=== PATIENT | female | born 1955 | race Asian ===

== ENCOUNTER 2018-06-11 07:33 | Day surgery (SDC) | payer OTHER ==
[~2018-06-11 07:33] MED LIST: CYCLOPENTOLATE 1% OPHTH DROPS 2 ML ONE; KETOROLAC 0.45% OPHTH DROPS ONE; PHENYLEPHRINE 2.5% OPHTH 2 ML DROPS ONE; PROPARACAINE 0.5% OPHTH DROPS 15 ML ONE
[2018-06-11] MEDS ORDERED: BSS/LIDOCAINE/EPINEPHRINE 1 ML SYRINGE ONE (07:53)
[2018-06-11] MEDS ORDERED: TIMOLOL 0.5% OPHTH DROPS ONE (07:53)
[2018-06-11] MEDS ORDERED: VANCOMYCIN OPHTHALMI 8MG/0.8ML 8 MG/0.8 ML SYRINGE IO ONE (07:53)
[2018-06-11] MEDS ORDERED: BRIMONIDINE 0.2% OPHTH DROPS 5 ML ONE (07:53)
[2018-06-11] MEDS ORDERED: TRIAMCIN/MOXIFLOX OPHTHALMIC 0.6 ML VIAL IO ONE (07:53)
[2018-06-11] MEDS ORDERED: EPINEPHrine 1 MG/ML AMP ONE (07:53)
[2018-06-11] MEDS ORDERED: PROPARACAINE 0.5% OPHTH DROPS 15 ML LEFTEYE ONE (08:25)
[2018-06-11] MEDS ORDERED: CYCLOPENTOLATE 1% OPHTH DROPS 2 ML LEFTEYE ONE (08:25)
[2018-06-11] MEDS ORDERED: PHENYLEPHRINE 2.5% OPHTH 2 ML DROPS LEFTEYE ONE (08:25)
[2018-06-11] MEDS ORDERED: KETOROLAC 0.45% OPHTH DROPS LEFTEYE ONE (08:25)
--- NOTE | 2018-06-11 08:25 | ANESTHESIA ---
Pre-Anesthesia VS, & Labs - Diagnosis L senile combined cataract - Procedure L extraction cataract with IOL Vital Signs: Temp Pulse Resp BP Pulse Ox 36.9 C 70 16 146/97 H 99 06/11/18 08:13 06/11/18 08:13 06/11/18 08:13 06/11/18 08:13 06/11/18 08:13 Height 5 ft Weight (kg) 67 kg - NPO >8 hours Last Fluid Intake: sips with Losartan - Is Patient ?: No Home Medications and Allergies Home Medications: Ambulatory Orders Medication Instructions Recorded Confirmed Aspirin [Adult Aspirin Regimen] 81 mg PO 06/10/18 Atorvastatin [Lipitor] 06/10/18 Loratadine 10 mg PO 06/10/18 Losartan Potassium 25 mg PO 06/10/18 metFORMIN [Glucophage] 500 mg PO ONCE 06/10/18 06/10/18 Aspirin [Adult Aspirin Regimen] 81 mg PO 06/10/18 Atorvastatin [Lipitor] 06/10/18 Loratadine 10 mg PO 06/10/18 Losartan Potassium 25 mg PO 06/10/18 metFORMIN [Glucophage] 500 mg PO ONCE 06/10/18 Allergies/Adverse Reactions: Allergies Allergy/AdvReac Type Severity Reaction Status Date / Time Penicillins Allergy Rash Verified 06/10/18 14:53 Sulfa (Sulfonamide Allergy Rash Verified 06/10/18 14:52 Antibiotics) Anes History & Medical History - Anesthetic History Anesthesia Complications: reports: No previous complications Family history of Anesthesia Complications: Denies Family history of Malignant Hyperthermia: Denies - Medical History Cardiovascular: reports: Hypertension, High cholesterol Endocrine/Autoimmune: reports: Type 2 diabetes - Surgical History General: Colonoscopy Gynecologic: Hysterectomy Exam General: Alert, Oriented x3, Cooperative, No acute distress Dental: WNL Mouth Openin Fingerbreadth Neck Mobility: Normal Mallampati classification: II Thyromental Distance: 4-6 cm Respiratory: Lungs clear, Normal breath sounds, No respiratory distress, No accessory muscle use Cardiovascular: Regular rate, Normal S1, Normal S2, No murmurs Plan Anesthesia Type: MAC Consent for Procedure(s) Verified and Reviewed: Yes Code Status: Attempt Resuscitation ASA classification: 2-Mild systemic disease Is this case an emergency?: No
[2018-06-11] MEDS ORDERED: LACTATED RINGERS 500 ML IV ONE (08:30)
[2018-06-11] MEDS ORDERED: MIDAZOLAM 2 MG/2 ML VIAL IVP ONE (09:00)
[2018-06-11] MEDS ORDERED: fentaNYL 100 MCG/2 ML VIAL IVP ONE (09:00)
[2018-06-11] MEDS ORDERED: EPINEPHrine 1 MG/ML AMP IVP ONE (09:08)
[2018-06-11] MEDS ORDERED: CHONDR SULF/HYALURONATE SYRINGE IO ONE (09:08)
[2018-06-11] MEDS ORDERED: BRIMONIDINE 0.2% OPHTH DROPS 5 ML OPTH ONE (09:08)
[2018-06-11] MEDS ORDERED: BSS/LIDOCAINE/EPINEPHRINE 1 ML SYRINGE IO ONE (09:09)
[2018-06-11] MEDS ORDERED: TIMOLOL 0.5% OPHTH DROPS OPTH ONE (09:09)
[2018-06-11] MEDS ORDERED: TRIAMCIN/MOXIFLOX/VANCO 1 ML VIAL IO ONE (09:09)
[2018-06-11 09:32] VITALS: BP 120/67
--- NOTE | 2018-06-11 10:40 | OPERATIVE REPORT ---
DATE OF SERVICE: 06/11/2018 Physician: Shiraz Stern MD PREOPERATIVE DIAGNOSIS: Visually significant cataract, left eye. This was her first cataract surger y. POSTOPERATIVE DIAGNOSIS: Visually significant cataract, left eye. This was her first cataract surge ry. NAME OF PROCEDURE: Phacoemulsification with posterior chamber intraocular lens implant, left eye. SURGEON: Shiraz Stern MD ANESTHESIA: Monitored anesthesia care. COMPLICATIONS: None. OPERATIVE INDICATIONS: This is a 63-year-old woman with progressive vision loss in the left eye due to a 1-2+ nuclear sclerotic and 3-4+ cortical cataract. Best corrected visual acuity was count finge rs at 1 foot, with glare to hand motions vision. Some of that may be due to a central serous chorior etinopathy. She was consented at length concerning risks and benefits of cataract surgeries which sh e expressed a desire to proceed with surgery. OPERATIVE PROCEDURE: The patient was taken to OR #3 and placed under monitored anesthesia care. A s urgical timeout was conducted confirming correct patient, correct procedure, and correct surgical sit e. She was given topical anesthesia, and then prepped and draped in the usual sterile fashion. The eye was entered at the 6 and 3 o'clock positions. Intracameral Shugarcaine was injected into the ant erior chamber, followed by Viscoat. A continuous-tear curvilinear capsulorrhexis was performed. The nucleus was hydrodissected and phacoemulsified. Cortex was evacuated using automated infusion and a spiration. Provisc was injected in the capsular bag, and a 10.5 diopter intraocular lens was inserte d into the bag. Approximately 0.8 mL of a mixture of triamcinolone, moxifloxacin and vancomycin was injected subconjunctivally in the superior quadrant for infection and inflammation prophylaxis. I an d A was used to evacuate the viscoelastic materials. The eye was inflated to physiologic pressure us ing balanced salt solutions and found to be watertight. The patient was taken from the operating jm m in good condition and given postoperative instructions. TD: 06/11/2018 09:32
== END 2018-06-11 07:34 | disposition home or self-care (01) ==
LOC: SDS 07:33 → EDBD 08:30
PROVIDERS: ATTEND Ophthalmology
PROC: 08RK3JZ Replacement of Left Lens with Synthetic Substitute, Percutaneous Approach (ICD-10-PCS; principal; 2018-06-11 09:00)
DX: E11.36 Type 2 diabetes mellitus with diabetic cataract (principal); I10 Essential (primary) hypertension; E11.29 Type 2 diabetes mellitus with other diabetic kidney complication; E78.00 Pure hypercholesterolemia, unspecified; J32.9 Chronic sinusitis, unspecified; Z79.84 Long term (current) use of oral hypoglycemic drugs; Z79.82 Long term (current) use of aspirin
CPT/HCPCS: 66984; A9270; J3490; V2632

== ENCOUNTER 2018-08-06 06:30 | Day surgery (SDC) | payer OTHER ==
[2018-08-06] MEDS ORDERED: KETOROLAC 0.45% OPHTH DROPS ONE (06:55)
[2018-08-06] MEDS ORDERED: CYCLOPENTOLATE 1% OPHTH DROPS 2 ML ONE (06:56)
[2018-08-06] MEDS ORDERED: PHENYLEPHRINE 2.5% OPHTH 2 ML DROPS ONE (06:56)
[2018-08-06] MEDS ORDERED: PROPARACAINE 0.5% OPHTH DROPS 15 ML ONE (06:57)
[2018-08-06] MEDS ORDERED: LACTATED RINGERS 500 ML IV ONE (07:04)
[2018-08-06] MEDS ORDERED: CYCLOPENTOLATE 1% OPHTH DROPS 2 ML RIGHTEYE ONE (07:10)
[2018-08-06] MEDS ORDERED: KETOROLAC 0.45% OPHTH DROPS RIGHTEYE ONE (07:10)
[2018-08-06] MEDS ORDERED: PROPARACAINE 0.5% OPHTH DROPS 15 ML RIGHTEYE ONE ×2 (07:10→08:10)
[2018-08-06] MEDS ORDERED: PHENYLEPHRINE 2.5% OPHTH 2 ML DROPS RIGHTEYE ONE (07:10)
[2018-08-06] MEDS ORDERED: BRIMONIDINE 0.2% OPHTH DROPS 5 ML ONE (07:13)
[2018-08-06] MEDS ORDERED: TRIAMCIN/MOXIFLOX OPHTHALMIC 0.6 ML VIAL IO ONE (07:13)
[2018-08-06] MEDS ORDERED: EPINEPHrine 1 MG/ML AMP ONE (07:13)
[2018-08-06] MEDS ORDERED: VANCOMYCIN OPHTHALMI 8MG/0.8ML 8 MG/0.8 ML SYRINGE IO ONE (07:14)
[2018-08-06] MEDS ORDERED: BSS/LIDOCAINE/EPINEPHRINE 1 ML SYRINGE ONE (07:14)
[2018-08-06] MEDS ORDERED: TIMOLOL 0.5% OPHTH DROPS ONE (07:14)
--- NOTE | 2018-08-06 07:37 | ANESTHESIA ---
Pre-Anesthesia VS, & Labs - Diagnosis right eye senile combined cataract - Procedure Laser assisted cataract extraction with IOL implant Height 5 ft Weight (kg) 68.7 kg - NPO >8 hours - Is Patient ?: No Home Medications and Allergies Aspirin [Adult Aspirin Regimen] 81 mg PO DAILY 06/10/18 Loratadine 10 mg PO DAILY 06/10/18 Losartan Potassium 25 mg PO DAILY 06/10/18 metFORMIN [Glucophage] 500 mg PO ONCE 06/10/18 Allergies/Adverse Reactions: Allergies Allergy/AdvReac Type Severity Reaction Status Date / Time Penicillins Allergy Rash Verified 06/11/18 08:37 Sulfa (Sulfonamide Allergy Rash Verified 06/11/18 08:37 Antibiotics) Anes History & Medical History - Anesthetic History Anesthesia Complications: reports: No previous complications - Medical History Cardiovascular: reports: Hypertension, High cholesterol Pulmonary: reports: Asthma Gastrointestinal: reports: None Urinary: reports: None Musculoskeletal: reports: None Endocrine/Autoimmune: reports: Type 2 diabetes Skin: reports: Eczema - Surgical History General: Colonoscopy Eyes Ears Nose Throat (EENT): Cataracts Gynecologic: Tubal ligation, Hysterectomy Exam General: Alert, Oriented x3, Cooperative, No acute distress Dental: Poor dentition Mouth Openin Fingerbreadth Neck Mobility: Normal Mallampati classification: III Thyromental Distance: 4-6 cm Respiratory: Lungs clear, Normal breath sounds, No respiratory distress, No accessory muscle use Cardiovascular: Regular rate, Normal S1, Normal S2, No murmurs Mental/Cognitive Status: Alert/Oriented X3, Normal for patient Cognitive Status: Within normal limits Plan Anesthesia Type: MAC Consent for Procedure(s) Verified and Reviewed: Yes Code Status: Attempt Resuscitation ASA classification: 2-Mild systemic disease Is this case an emergency?: No
[2018-08-06] MEDS ORDERED: BRIMONIDINE 0.2% OPHTH DROPS 5 ML OPTH ONE (08:09)
[2018-08-06] MEDS ORDERED: EPINEPHrine 1 MG/ML AMP IVP ONE (08:09)
[2018-08-06] MEDS ORDERED: MIDAZOLAM 2 MG/2 ML VIAL IVP ONE (08:10)
[2018-08-06] MEDS ORDERED: CHONDR SULF/HYALURONATE SYRINGE IO ONE (08:10)
[2018-08-06] MEDS ORDERED: TIMOLOL 0.5% OPHTH DROPS OPTH ONE (08:10)
[2018-08-06] MEDS ORDERED: BSS/LIDOCAINE/EPINEPHRINE 1 ML SYRINGE IO ONE (08:10)
[2018-08-06 08:56] VITALS: BP 117/83
--- NOTE | 2018-08-06 11:24 | OPERATIVE REPORT ---
DATE OF SERVICE: 08/06/2018 Physician: Shiraz Stern MD PREOPERATIVE DIAGNOSIS: Visually significant cataract, right eye. Cataract surgery was performed on the left eye on 06/11/2018. POSTOPERATIVE DIAGNOSIS: Visually significant cataract, right eye. PROCEDURE: Phacoemulsification with posterior chamber intraocular lens implant, right eye, with lase r assist and toric IOL. SURGEON: Dr. Shiraz Stern. ANESTHESIA: Monitored anesthesia care. COMPLICATIONS: None. OPERATIVE INDICATIONS: This is a 63-year-old woman with progressive vision loss in the right eye due to 1 to 2+ nuclear sclerotic and 3 to 4+ cortical cataract. Best corrected visual acuity was 20/100 with glare to hand motion vision in the right eye. Indications for surgery are overall decrease in vision, difficulty driving in low light or at night, difficulty driving at night because of headlights from other vehicles and/or street lights, and diffi culty with glare or bright lights in any situation. She was consented at length concerning the risks and benefits of cataract surgery, after which she expressed her desire to proceed with surgery. OPERATIVE PROCEDURE: Patient was taken into OR #3 and placed under monitored anesthesia care. A sugar gical timeout was conducted confirming correct patient, correct procedure, and correct surgical site. She was placed on the LenSx laser and eye docked to laser interface. The laser performed the capsu lotomy, lens softening, phaco wounds and arcuate keratotomy incisions. She was then moved to the ope rating microscope, given topical anesthesia, then prepped and draped in the usual sterile fashion. The eye was entered at the 12 and 9 o'clock positions. Intracameral Shugarcaine was injected into th e anterior chamber, followed by Viscoat. The capsulorrhexis flap created by the LenSx laser was marcus woo from the anterior chamber. The nucleus was hydrodissected and phacoemulsified. The cortex was e vacuated using automated infusion and aspiration. Provisc was injected in the capsular bag, and an 1 1.0 diopter toric intraocular lens was inserted into the bag and rotated to the 089 axis. Approximat esteban 0.8 mL of a mixture of triamcinolone, moxifloxacin and vancomycin was injected subconjunctivally in the superior quadrant for inflammation and infection prophylaxis. I and A was used to evacuate th e viscoelastic materials. The eye was inflated to physiologic pressure using a balanced salt solutio n and the eye verified to be in the position 089, and the wound was found to be watertight. Patient was taken from the operating room in good condition and given postop instructions. TD: 08/06/2018 08:53
== END 2018-08-06 06:31 | disposition home or self-care (01) ==
LOC: SDS 06:30
PROVIDERS: ATTEND Ophthalmology
PROC: 08RJ3JZ Replacement of Right Lens with Synthetic Substitute, Percutaneous Approach (ICD-10-PCS; principal; 2018-08-06 08:00)
DX: H25.811 Combined forms of age-related cataract, right eye (principal); E11.9 Type 2 diabetes mellitus without complications; I10 Essential (primary) hypertension; J45.909 Unspecified asthma, uncomplicated
CPT/HCPCS: 66984; A9270; J3490; V2632; V2787